=== PATIENT | female | born 1995 | race Caucasian/White ===

== ENCOUNTER → 2021-01-14 | Outpatient (CLI) | payer OTHER | LOC: MRI 14:11 | DX: Q07.00 Arnold-Chiari syndrome without spina bifida or hydrocephalus (principal) | CPT/HCPCS: 70551 ==

== ENCOUNTER → 2021-03-28 | Outpatient (CLI) | payer OTHER | LOC: RT 12:45 | DX: R07.9 Chest pain, unspecified (principal) | CPT/HCPCS: 93005 ==

== ENCOUNTER 2021-08-19 21:37 | Emergency (ER) | payer OTHER ==
[2021-08-19 23:20] LABS: HEMOGLOBIN 13.2 gm/dl (12.3-15.3); RED BLOOD COUNT 4.37 M/UL (4.00-5.10); WHITE BLOOD COUNT 7.6 K/UL (4.5-11.0)
[2021-08-19 23:38] LABS: BUN/CREATININE RATIO 19 (0-10)
== END 2021-08-20 05:45 | disposition home or self-care (01) ==
LOC: ER1 21:37
PROVIDERS: Physician Assistant
DX: R51.9 Headache, unspecified (principal); F17.200 Nicotine dependence, unspecified, uncomplicated
CPT/HCPCS: 70450; 80048; 85025; 96374; 96375; 99284; J1200; J1885; J2765